=== PATIENT | female | born 1975 | race Caucasian/White ===

== ENCOUNTER 2024-09-27 11:22 | Outpatient (AMB) | payer MEDICAID, SELFPAY ==
--- NOTE | 2024-09-27 11:32 | A.OFFVIS_ITS ---
VS Expanded 09/27/24 11:41 10/10/24 08:45 Height 5 ft 4.5 in 5 ft 4 in Weight 137 lb 12.623 oz 138 lb BMI 23.3 23.7 Intake Visit Reasons: Hypercholesterolemia Nutrition Presentation Details: Pt presens for MNT for hypercholesterolemia Pt thinks she is lactose intolerant d/t bloating, therefore working on choosing lactose free options and avoids garlic and onion due to GI discomfort reports having eliminated dairy about a yr and half ago vitamin water (reports unsing green powder with vit/nut added, unsure of name therefore was asked to bring label or pic to next appointment) logan 4 9 cereal in water and 6 oz can soda large meal in the day (salad green leaf veg cardenas peppers, chicken breast dairy free tortellini (potato/almond) or barrilla protein pasta or makes own protein bars dried amy and shana seltzer waer yogurt cashew bake and coconut cut out alcohol about , 9 month ago, doing well (reports was having 1-2 servings per week ) physical activity: 1 x[facility] [employer] [facility] Height: 5 ft 4 in Weight: 138 lb Resting Metabolic Rate: 1234.33 Calculated Activity Level: Sedentary Calories Needed to Maintain Weight: 1481.20 Diagnosis Nutrition problem #1: altered nutrition labs As related to (etiology) #1: diagnosis (hypercholesterolemia ) As evidenced by (sign/symptom) #1: abnormal serum lipids (ldl 204 (07/29)) Assessment & Plan Assessment & Plan (1) Hypercholesterolemia: Code(s): E78.00 - Pure hypercholesterolemia, unspecified Category: Medical Plan: Wt: 63 Kg ( 10/28 ) Est kcal needs as per MSJ: 1500 (40% carb, 30% protein/fat) Est fluid needs as per 25-30 ml/d:1900 Est prot per day as per 1 g/kg bw: 60 Recommend fiber intake : 8-10 g per day and gradually increase to 25-28 g per day for women and 35-38 g for men or as tolerated Recommend sodium intake per day : less than 2300 mg Educated patient on: ( R = reviewed V = verbalizes understanding N/R = needs review N/A = not applicable * Food sources of carbohydrate, adequate serving sizes and its role in various health conditions: R * Differences between complex carbohydrates a simple carbohydrates, role of fiber in diet: R * Lean protein sources of foods: R * Differences between types of fats and role in diet (mono on saturated fat fatty acids, saturated fatty acids, trans fats): R * Food sources of sodium in salt and healthy modifications for heart health in kidney health: R V R/V * Vitamins and minerals: R V N/R * Healthy plate method concept: R * Physical activity: Benefits a precaution: R Patient Instructions: Include sources of omega 3 fatty acides Continue to gradually replace saturated fats with unsaturated fats Include fish at least twice a week (3-4 oz of salmon, tuna for example) baked or in sand with olive oil work on reducing fried foods, foods made with batter Continue to have water or fruit/herb infused water ,reducing on sugary beverages Coding Level of Care Code Nutr Indiv Intake (71404) Diagnoses Hypercholesterolemia E78.00 Time Spent (min) 30
[2024-09-27 11:41] VITALS: BMI 23.3
[2024-10-10 08:45] VITALS: BMI 23.7
== END 2024-09-27 12:17 | disposition home or self-care (01) ==
LOC: HO.ENCR 11:22
PROVIDERS: PCP Family Medicine; Visit Provider Dietitian, Registered
DX: E78.00 Pure hypercholesterolemia, unspecified (principal)

== ENCOUNTER → 2024-09-27 11:22 | Outpatient (BNVA) | payer MEDICAID, SELFPAY | PROVIDERS: PCP Family Medicine; Visit Provider Dietitian, Registered | DX: Z71.3 Dietary counseling and surveillance (principal); E78.00 Pure hypercholesterolemia, unspecified | CPT/HCPCS: 97802 ==

== ENCOUNTER 2024-12-27 11:25 | Outpatient (AMB) | payer MEDICAID, SELFPAY ==
[2024-12-27 11:30] VITALS: BMI 23.5
--- NOTE | 2024-12-27 11:30 | A.OFFVIS_ITS ---
VS Expanded 12/27/24 11:30 Height 5 ft 4 in Weight 136 lb 14.513 oz BMI 23.5 Intake Visit Reasons: hyperlipidemia Medication List - Last Reconciled 01/03/[address], LDN hydroxyzine HCl 10 mg PO BID PRN mirtazapine 7.5 mg PO BEDTIME multivitamin with minerals 1 cap PO DAILY zinc sulfate 50 mg PO DAILY Nutrition Presentation Details: Pt presents for MNT for hypercholesterlemia Pt reports working on increasing soluble fiber in the diet reading food labels, choosing high fiber and working on trying recipes with monounsaturated fats, working on reducing /eliminating empty calories/fast food meals. Reports lacking variety of foods d/t dislikes/food consistency/taste B: logan lentil cereal dry or with low fat milk L: pasta high protein with olive oil Dinner: salad green /carrots, nuts, seeds physical activity: participates in [employer] one workout per week workouts (wt training) and 1 /wk , 30-45 walk/aerobic exercises Assessment & Plan Assessment & Plan (1) Hypercholesterolemia: Code(s): E78.00 - Pure hypercholesterolemia, unspecified Category: Medical Plan: Wt: 63 Kg ( 10/28 ), 62 kg (12/29) Est kcal needs as per MSJ: 1500 (40% carb, 30% protein/fat) Est fluid needs as per 25-30 ml/d:1900 Est prot per day as per 1 g/kg bw: 60 Recommend fiber intake : 8-10 g per day and gradually increase to 25-28 g per day for women and 35-38 g for men or as tolerated Recommend sodium intake per day : less than 2300 mg Educated patient on: ( R = reviewed V = verbalizes understanding N/R = needs review N/A = not applicable * Food sources of carbohydrate, adequate serving sizes and its role in various health conditions: R * Differences between complex carbohydrates a simple carbohydrates, role of fiber in diet: R * Lean protein sources of foods: R * Differences between types of fats and role in diet (mono on saturated fat fatty acids, saturated fatty acids, trans fats): R * Food sources of sodium in salt and healthy modifications for heart health in kidney health: R V R/V * Vitamins and minerals: R * Healthy plate method concept: R * Physical activity: Benefits a precaution: R Patient Instructions: Incorporate fruits/veg in smoothies- see options continue working on reducing saturated fats (highly processed foods /fritters/ cheese /cheese sauces /pastries) Coding Level of Care Code Nutr Indiv Subseq (98492) Diagnoses Hypercholesterolemia E78.00 Time Spent (min) 30
--- OUTSIDE RECORDS SUMMARY | 2024-12-27 14:17 | XMS_ITS | Encounter Summary ---
Author Organization [facility] Address [address] [place] [address] Phone Care Team Providers Care Limerock Tower Loader Name Role Phone Tobin Helton MD Unavailable [phone] Christin Monroy MD Primary Care Provider + Encounter Details Date Type Department Care Team (Latest Contact Info) Description 04/30/2023 Transcribe Orders Virtual Department [address] [place] [address] Christin Monroy MD [address] [place] [address] [email or web address] Breast screening (Primary Dx) Social History Tobacco Use Types Packs/Day Years Used Date Smoking Tobacco: Never Smokeless Tobacco: Never Alcohol Use Standard Drinks/Week Comments Yes 0 (1 standard drink = 0.6 oz pur e alcohol) occasionally Education Answer Date Recorded Are you interested in more education? Not on rayo e 08/01/2022 Are you concerned about learning? Not on file 08/01/2022 No 08/01/2022 No 08/01/2022 Digital Access Answer Date Recorded No 09/01/2022 No 09/01/2022 Reliable internet access at home? Not on file 09/01/2022 Device with a working camera? Not on file Comments No Sex and Gender Information Value Date Recorded Sex Assigned at Not on file Legal Sex Female 9:30 PM EDT Gender Identity Not on file Sexual Orientation Not on file documented as of this encounter Plan of Treatment Upcoming Encounters Date Type Department Care Team (Late st Contact Info) Description 07/26/2024 Procedure Pass [address] [address] 02/17/2025 9:30 AM EST Appointment [address] [address] Christin Monroy MD [address] [place] [address] [email or web address] documented as of this encounter Results * BI MAMMOGRAM SCREENING WITH TOMOSYNTHESIS WITH CAD (BILATERAL) (07/07/2023 11:09 AM EDT) Anatomical Region Laterality Modality Breast Left, Breast Right, Breast Bilateral Bila teral Mammography 07/08/2023 12:3 8 PM EDT Impressions 07/08/2023 4:24 PM EDT No mammographic evidence of malignancy in either breast. Annual screening mammography is recommended. BI-RADS 2 BENIGN The patient will be notified of the results and recommendations. Narrative 07/08/2023 4:24 PM EDT BI MAMMOGRAM SCREENING WITH TOMOSYNTHESIS WITH CAD (BILATERAL) Additional patient information: Screening. COMPARISON: Comparison is made with relevant prior imaging. Breast composition: The breast tissue is extremely dense which lowers the sensitivity of mammography. FINDINGS: No abnormal masses, suspicious calcifications, or other significant findings are identified mammographically in either breast. Diffuse bilateral waxing and waning masses consistent with cysts. Diffuse bilateral punctate microcalcifications with benign characteristics. Procedure Note Philipp Gilman MD - 07/08/2023 BI MAMMOGRAM SCREENING WITH TOMOSYNTHESIS WITH CAD (BILATERAL) Additional patient information: Screening. COMPARISON: Comparison is made with relevant prior imaging. Breast composition: The breast tissue is extremely dense which lowers thesensitivity of mammography. FINDINGS: No abnormal masses, suspicious calcifications, or other significantfindings are identified mammographically in either breast. Diffusebilateral waxing and waning masses consistent with cysts. Diffusebilateral punctate microcalcifications with benign characteristics. IMPRESSION: No mammographic evidence of malignancy in either breast. Annual screening mammography is recommended. BI-RADS 2 BENIGN The patient will be notified of the results and recommendations. us Christin Monroy MD IMG MG EXAMS Final Re sult documented in this encounter Visit Diagnoses Diagnosis Breast screening- Primary Breast screening, unspecified Breast screening Breast screening, unspecified documented in this encounter Care Teams Limerock Tower Loader Relationship Specialty Start Date End Date Christin Monroy MD [address] [address] [email or web address] PCP - General Family Medicine 04/30/23 Tobin Helton MD [address] [address] [email or web address] Historical LMR Provider 01/22/17 documented as of this encounter Additional Source Comments The information contained in this document represents components of the legal health record. It is not the complete legal health record.[facility]
--- OUTSIDE RECORDS SUMMARY | 2024-12-27 14:17 | XMS_ITS | Encounter Summary ---
Author Organization [facility] Address [address] [place] [address] Phone Care Team Providers Care Radio Station Engineer Name Role Phone Tobin Helton MD Primary Care Provider Tobin Helton MD Unavailable [phone] Erum Dyer NP Unavailable [phone] Jeff Butler MD Unavailable [phone] Tobin Helton MD Unavailable [phone] Tobin Helton MD Unavailable [phone] Christin Monroy MD Primary Care Provider + Encounter Details Date Type Department Care Team (Latest Contact Info) Description 12/24/2018 Transcribe Orders Virtual Department [address] [place], [place] [phone] Tobin Helton MD [address] [place] [address] [email or web address] Neck pain (Primary Dx) Social History Tobacco Use Types Packs/Day Years Used Date Smoking Tobacco: Never Assessed Comments No Sex and Gender Information Value Date Recorded Sex Assigned at Not on file Legal Sex Female 9:30 PM EDT Gender Identity Not on file Sexual Orientation Not on file documented as of this encounter Plan of Treatment Upcoming Encounters Date Type Department Care Team (Late st Contact Info) Description 07/26/2024 Procedure Pass [place] [address] [address] 02/17/2025 9:30 AM EST Appointment [address] [address] Christin Monroy MD [address] [place] [address] [email or web address] documented as of this encounter Results * XR CERVICAL SPINE 4-5 VIEWS (12/27/2018 12:58 PM EDT) Anatomical Region Laterality Modality C-spine Radiographic Evon ging 12/27/2018 1:09 PM EDT Impressions 12/27/2018 1:12 PM EDT Minimal disc space narrowing at [id number]-maoienmgj unremarkable examination. This examination is insufficient to assess findings related to the mandible. On the images with the mandible is visualized no right-sided pathology is noted on this exam. S/S: <N/A> no indication applies (use free text below) bump on right side of jaw, neck pain POS - [id number] Narrative 12/27/2018 1:12 PM EDT COMPARISON: None FINDINGS: AP, lateral, both oblique, and odontoid views of the cervical spine are obtained. The odontoid appears intact. There may be some minor disc space narrowing evident at C5-6. Minimal bony spurring is noted. No compression fracture or subluxation is seen. On oblique views the neural foramen are patent. The lung apices are clear. Procedure Note Ayush Lees MD - 12/27/2018 COMPARISON: None FINDINGS: AP, lateral, both oblique, and odontoid views of the cervical spine areobtained. The odontoid appears intact. There may be some minor disc space narrowing evident at C5-6. Minimal bonyspurring is noted. No compression fracture or subluxation is seen. On oblique views the neural foramen are patent. The lung apices are clear. IMPRESSION: Minimal disc space narrowing at L0-2-autftuzla unremarkable examination. This examination is insufficient to assess findings related to themandible. On the images with the mandible is visualized no right-sidedpathology is noted on this exam. S/S: <N/A> no indication applies (use free text below) bump on right sideof jaw, neck pain POS - [id number] Tobin Helton MD IMG XR SPINE Final Result documented in this encounter Visit Diagnoses Diagnosis Neck pain- Primary Cervicalgia Neck pain Cervicalgia documented in this encounter Care Teams Radio Station Engineer Relationship Specialty Start Date End Date Tobin Helton MD [address] [address] [email or web address] PCP - General 01/20/17 04/29/23 Christin Monroy MD [address] [place] [address] [email or web address] PCP - General Family Medicine 04/30/23 Tobin Helton MD [address] [place] [address] [email or web address] Historical LMR Provider 01/22/17 Erum Dyer NP [address] [place] [address] Historical LMR Provider 01/22/17 2 Jeff Butler MD [address] [place] [address] [address] [place] [address] [email or web address] Historical LMR Provider 01/22/17 04/13/21 Tobin Helton MD [address] [place] [address] [email or web address] Insurance Assigned Provider 07/04/1708/23 Tobin Helton MD [address] [address] [email or web address] Insurance Assigned Provider 11/09/22 documented as of this encounter Additional Source Comments The information contained in this document represents components of the legal health record. It is not the complete legal health record.[facility]
--- OUTSIDE RECORDS SUMMARY | 2024-12-27 14:17 | XMS_ITS | Encounter Summary ---
Author Organization [facility] Address [address] [place] [address] Phone Care Team Providers Care Millinery Teacher Name Role Phone Tobin Helton MD Primary Care Provider Tobin Helton MD Unavailable [phone] Erum Dyer NP Unavailable [phone] Jeff Butler MD Unavailable [phone] Tobin Helton MD Unavailable [phone] Tobin Helton MD Unavailable [phone] Christin Monroy MD Primary Care Provider + Encounter Details Date Type Department Care Team (Latest Contact Info) Description 11/04/2018 Transcribe Orders [address] [phone] Tobin Helton MD [address] [place] [address] [email or web address] Fatigue, unspecified type (Primary Dx); Depression, unspecified depression type Social History Tobacco Use Types Packs/Day Years [...] st Contact Info) Description 07/26/2024 Procedure Pass [address] [address] 02/17/2025 9:30 AM EST Appointment [address] [address] Christin Monroy MD [address] [place] [address] [email or web address] documented as of this encounter Results * CBC and differential (11/04/2018 11:34 AM EDT) WBC 6.23 3.40 - 11.20 K/uL [facility] RBC 4.39 3.80 - 4.80 M/uL [facility] HGB 13.7 12.0 - 15.0 g/dL [facility] HCT 40.7 36.0 - 46.0 % [facility] PLT 239 130 - 400 K/uL [facility] MCV 92.7 79.0 - 98.0 fL [facility] MCH 31.2 27.0 - 34.8 pg [facility] MCHC 33.7 31.5 - 36.0 g/dL [facility] RDW 11.8 10.8 - 14.6 % [facility] MPV 10.6 9.4 - 12.4 [facility] NRBC 0.00 0.00 /100 WBCs [facility] ABSOLUTE NRBC 0.00 0.00 K/uL [facility] DIFF METHOD Auto [facility] NEUTS 50.8 45.30 - 77.70 % [facility] LYMPHS 37.6 12.30 - 39.70 % [facility] MONOS 8.0 4.10 - 12.80 % [facility] EOS 2.7 0 - 7.2 % [facility] BASOS 0.6 0 - 2.80 % [facility] Granulocytes, immature (%) 0.3 0.0 - 0.9 % [facility] ABSOLUTE NEUTS 3.16 1.40 - 7.70 K/uL [facility] ABSOLUTE LYMPHS 2.34 0.60 - 3.20 K/uL [facility] ABSOLUTE MONOS 0.50 0.11 - 0.59 K/uL [facility] ABSOLUTE EOS 0.17 0.01 - 0.50 K/uL [facility] ABSOLUTE BASOS 0.04 0.00 - 0.08 K/uL [facility] Granulocytes, immature 0.02 0.00 - 0.05 K/uL [facility] Blood 11/04/2018 11:3 4 AM EDT 11/04/2018 11:39 AM EDT us Tobin Helton MD LAB BLOOD ORDERABLES Final R esult Performing Organization Address City/[facility]/ZIP Co de Phone Number [address] [address] * TSH with reflex (11/04/2018 11:34 AM EDT) TSH 3.43 0.27 - 4.20 uIU/mL [facility] Blood 11/04/2018 11:3 4 AM EDT 11/04/2018 11:39 AM EDT us Tobin Helton MD LAB BLOOD ORDERABLES [facility] Performing Organization Address [facility] Co de Phone Number [address] [address] * (ABNORMAL) Lipid panel (11/04/2018 11:34 AM EDT) HDL 44 mg/dL [facility] Comment: Interpretation <40 mg/dL: Low HDL cholesterol (major risk factor for CHD) Greater than or equal to 60 mg/dL: High HDL cholesterol ( negative risk factor for CHD) HDL - cholesterol is affected by a number of factors, e.g. smoking, excerise, hormones, sex and age. CHOLESTEROL 206 0 - 240 mg/dL [facility] TRIGLYCERIDES 164(H) 30 - 160 mg/dL [facility] LDL 129 50 - 129 mg/dL [facility] Comment: LDL levels in terms of risk for coronary heart disease: <100 mg/dL: Optimal 100-129 mg/dL: Near or above optimal 130-159 mg/dL: Borderline high 160-189 mg/dL: High >190 mg/dL: Very High CARDIAC RISK RATIO 4.7(H) 3.3 - 4.4 C [facility] Blood 11/04/2018 11:3 4 AM EDT 11/04/2018 11:39 AM EDT us Tobin Helton MD LAB BLOOD ORDERABLES Final R esult [address] [address] * (ABNORMAL) Comprehensive metabolic panel (11/04/2018 11:34 AM EDT) SODIUM 141 133 - 146 mmol/L [facility] POTASSIUM 3.5 3.3 - 5.1 mmol/L [facility] CHLORIDE 102 96 - 108 mmol/L [facility] CO2 24 21 - 35 mmol/L [facility] BUN 18 6 - 19 mg/dL [facility] CREATININE 1.00 0.5 - 1.5 mg/dL [facility] GLUCOSE 69(L) 70 - 99 mg/dL [facility] ALBUMIN 4.3 3.9 - 4.8 g/dL [facility] TOTAL PROTEIN 7.4 6.5 - 8.0 g/dL [facility] CALCIUM 9.7 8.4 - 10.3 mg/dL [facility] ALKALINE PHOSPHATASE 67 39 - 117 U/L [facility] TOTAL BILIRUBIN 0.5 0.0 - 1.2 mg/dL [facility] AST 19 0 - 37 U/L [facility] ALT 16 0 - 40 U/L [facility] GLOBULIN 3.1 1 - 4.8 g/dL [facility] EGFR 68 >59 mL/min/1.7 3m2 [facility] Comment:If patient is black, multiply result by 1.159. Estimated glomerular filtration rate calculated using the CKD-EPI equation. ANION GAP 19 10 - 20 mmol/L [facility] Blood 11/04/2018 11:3 4 AM EDT 11/04/2018 11:39 AM EDT us Tobin Helton MD LAB BLOOD ORDERABLES Final R esult [address] [address] documented in this encounter Visit Diagnoses Diagnosis Fatigue, unspecified type- Primary Depression, unspecified depression type documented in this encounter Care Teams Millinery Teacher Relationship Specialty Start Date End Date Tobin Helton MD [address] [address] [email or web address] PCP - General 01/20/17 04/29/23 Christin Monroy MD [address] [address] [email or web address] PCP - General Family Medicine 04/30/23 Tobin Helton MD [address] [place] [address] [email or web address] Historical LMR Provider 01/22/17 Erum Dyer NP [address] [place] [address] Historical LMR Provider 01/22/17 2 Jeff Butler MD [address] [place] [address], [facility] [address] [place] [address] [email or web address] Historical LMR Provider 01/22/17 04/13/21 Tobin Helton MD [address] [address] [email or web address] Insurance Assigned Provider 07/04/1708/23 Tobin Helton MD [address] [address] [email or web address] Insurance Assigned Provider 11/09/22 documented as of this encounter Additional Source Comments The information contained in this document represents components of the legal health record. It is not the complete legal health record.[facility]
--- OUTSIDE RECORDS SUMMARY | 2024-12-27 14:17 | XMS_ITS | Encounter Summary ---
Author Organization [facility] Address [address] [place] [address] Phone Care Team Providers Care Wind Plant Manager Name Role Phone Tobin Helton MD Primary Care Provider [phone] Tobin Helton MD Unavailable [phone] Erum Dyer NP Unavailable [phone] Jeff Butler MD Unavailable [phone] Tobin Helton MD Unavailable [phone] Tobin Helton MD Unavailable [phone] Christin Monroy MD Primary Care Provider + Reason for Referral * Physical Therapy - Closed Specialty Diagnoses / Procedures Referred By Benoit de la torre Referred To Contact Physical Therapy Diagnoses Encounter for rehabilitation Tobin Helton MD Phone: tel: fax: [email or web address] [address] Phone: tel: Referral ID Status Reason Start Date Expiration Date Visits Re quested Visits Authorized [id number] Closed 06/18/2017 06/18/2018 12 12 Encounter Details Date Type Department Care Team (Latest Contact Info) Description 06/10/2017 Transcribe Orders [facility] [address] [place] [address] Tobin Helton MD [address] [address] [email or web address] Encounter for rehabilitation (Primary Dx) Social History Tobacco Use Types Packs/Day Years Used Date Smoking Tobacco: Never Assessed Comments Unknown Sex and Gender Information Value Date Recorded Sex Assigned at Not on file Legal Sex Female 9:30 PM EDT Gender Identity Not on file Sexual Orientation Not on file documented as of this encounter Plan of Treatment Upcoming Encounters Date Type Department Care Team (Late st Contact Info) Description 07/26/2024 Procedure Pass [address] [address] 02/17/2025 9:30 AM EST Appointment [address] [address] Christin Monryo MD [address] [place] [address] [email or web address] Scheduled Referrals Name Type Priority Associated Diagnoses Orde r Schedule Ambulatory referral to [facility] Physical Therapy Outpatient Referral Routine Encounter for rehabilitation Ordered: 06/10/2017 documented as of this encounter Visit Diagnoses Diagnosis Encounter for rehabilitation- Primary documented in this encounter Care Teams Wind Plant Manager Relationship Specialty Start Date End Date Tobin Helton MD [address] [address] [email or web address] PCP - General 01/20/17 04/29/23 Christin Monroy MD [address] [place] [address] [email or web address] PCP - General Family Medicine 04/30/23 Tobin Helton MD [address] [place] [address] [email or web address] Historical LMR Provider 01/22/17 Erum Dyer NP [address] [place] [address] Historical LMR Provider 01/22/17 2 Jeff Butler MD [address] [place] [address] [address] [place] [address] [email or web address] Historical LMR Provider 01/22/17 04/13/21 Tobin Helton MD [address] [address] [email or web address] Insurance Assigned Provider 07/04/1708/23 Tobin Helton MD [address] [address] [email or web address] Insurance Assigned Provider 11/09/22 documented as of this encounter Additional Source Comments The information contained in this document represents components of the legal health record. It is not the complete legal health record.[facility]
--- OUTSIDE RECORDS SUMMARY | 2024-12-27 14:18 | XMS_ITS | Encounter Summary ---
Author Organization [facility] Address [address] [place] [address] Phone Care Team Providers Care Mirror Polisher Name Role Phone Tobin Helton MD Primary Care Provider Tobin Helton MD Unavailable [phone] Erum Dyer CERTIFIED PEDORTHOTIST Unavailable [phone] Jeff Butler MD Unavailable Tobin Helton MD Unavailable [phone] Tobin Helton MD Unavailable [phone] Christin Monroy MD Primary Care Provider + Encounter Details Date Type Department Care Team (Late st Contact Info) Description 04/30/2017 Ancillary Orders [facility], X-Ray - [address] [place] [address] Tobin Helton MD [address] [place] [address] [email or web address] Left foot pain Social History Tobacco Use Types Packs/Day Years [...] st Contact Info) Description 07/26/2024 Procedure Pass [address] [address] 02/17/2025 9:30 AM EST Appointment [address] [address] Christin Monroy MD [address] [place] [address] [email or web address] documented as of this encounter Results * XR FOOT 3 OR MORE VIEWS (LEFT) (04/30/2017 12:31 PM EST) Anatomical Region Laterality Modality Foot Left Radiographic Evon ging 04/30/2017 12:3 5 PM EST Impressions 04/30/2017 12:36 PM EST No significant bony abnormality. POS - [id number] Narrative 04/30/2017 12:36 PM EST Frontal, lateral, and oblique views disclose no fracture, subluxation, or other significant abnormality involving the visualized regional skeletal structures. No periarticular erosions. Fifth toe is held in flexion slightly limiting evaluation of the interphalangeal joints. Second metatarsal head is unremarkable in appearance. Procedure Note Jose Alejandro Robbins MD - 04/30/2017 Frontal, lateral, and oblique views disclose no fracture, subluxation, orother significant abnormality involving the visualized regional skeletalstructures. No periarticular erosions. Fifth toe is held in flexionslightly limiting evaluation of the interphalangeal joints. Secondmetatarsal head is unremarkable in appearance. IMPRESSION: No significant bony abnormality. POS - [id number] Tobin Helton MD IMG XR LOWER EXTREMITY Final Result documented in this encounter Visit Diagnoses Diagnosis Left foot pain Pain in soft tissues of limb Left foot pain Pain in soft tissues of limb documented in this encounter Care Teams Mirror Polisher Relationship Specialty Start Date End Date Tobin Helton MD [address] [place] [address] [email or web address] PCP - General 01/20/17 04/29/23 Christin Monroy MD [address] [place] [address] [email or web address] PCP - General Family Medicine 04/30/23 Tobin Helton MD [address] [address] [email or web address] Historical LMR Provider 01/22/17 Erum Dyer NP [address] [place] [address] Historical LMR Provider 01/22/17 2 Jeff Butler MD [address] [place] [address] 102 [place] [address] [email or web address] Historical LMR Provider 01/22/17 04/13/21 Tobin Helton MD [address] [place] [address] [email or web address] Insurance Assigned Provider 07/04/1708/23 Tobin Helton MD [address] [address] [email or web address] Insurance Assigned Provider 11/09/22 documented as of this encounter Additional Source Comments The information contained in this document represents components of the legal health record. It is not the complete legal health record.[facility]
--- OUTSIDE RECORDS SUMMARY | 2024-12-27 14:19 | XMS_ITS | Encounter Summary ---
Author Organization [facility] Address [address] [place] [address] Phone Care Team Providers Care Developer Analyst Name Role Phone Tobin Helton MD Primary Care Provider [phone] Tobin Helton MD Unavailable [phone] Tobin Helton MD Unavailable [phone] Tobin Helton MD Unavailable [phone] Christin Monroy MD Primary Care Provider + Encounter Details Date Type Department Care Team (Latest Contact Info) Description 06/21/2021 Transcribe Orders Virtual Department [address] [place] [address] Tobin Helton MD [address] [place] [phone] [email or web address] Breast screening (Primary Dx) Social History Tobacco Use Types Packs/Day Years Used Date Smoking Tobacco: Never Smokeless Tobacco: Never Alcohol Use Standard Drinks/Week Comments Yes 0 (1 standard drink = 0.6 oz pur e alcohol) 5 per month Comments No Sex and Gender Information Value Date Recorded Sex Assigned at Not on file Legal Sex Female 9:30 PM EDT Gender Identity Not on file Sexual Orientation Not on file documented as of this encounter Plan of Treatment Upcoming Encounters Date Type Department Care Team (Late st Contact Info) Description 07/26/2024 Procedure Pass [facility], [facility] [address] [place] [address] 02/17/2025 9:30 AM EST Appointment [facility], Mammography- [facility] [address] [place] [address] Christin Monroy MD [address] [place] [address] [email or web address] documented as of this encounter Results * BI MAMMOGRAM SCREENING WITH TOMOSYNTHESIS WITH CAD (BILATERAL) (08/02/2021 11:54 AM EDT) Anatomical Region Laterality Modality Breast Left, Breast Right, Breast Bilateral Bila teral Mammography 08/02/2021 12:0 0 PM EDT Impressions 08/02/2021 12:03 PM EDT No findings suspicious for malignancy. In the absence of a worrisome palpable abnormality, annual screening mammography is recommended. BI-RADS CATEGORY: 2 - Benign finding. DENSITY: The breast tissue is extremely dense, which lowers the sensitivity of mammography. Narrative 08/02/2021 12:03 PM EDT COMPARISON: 06/23/2016 and 08/25/2017. Bilateral 3-D tomosynthesis with 2-D reconstructions in the CC and MLO projection. Computer-aided detection system also utilized. No new mass, asymmetry, architectural distortion or suspicious calcifications have become apparent on either side. The breasts are extremely dense with many ill-defined lobulated areas within the fibroglandular pattern all of which are stable or less conspicuous than previous. Scattered bilateral calcifications have also slightly increased in number but none have developed worrisome characteristics. Procedure Note Lawson Singh MD - 08/02/2021 COMPARISON: 06/23/2016 and 08/25/2017. Bilateral 3-D tomosynthesis with 2-D reconstructions in the CC and MLOprojection. Computer-aided detection system also utilized. No new mass, asymmetry, architectural distortion or suspiciouscalcifications have become apparent on either side. The breasts are extremely dense with many ill-defined lobulated areaswithin the fibroglandular pattern all of which are stable or lessconspicuous than previous. Scattered bilateral calcifications have also slightly increased in numberbut none have developed worrisome characteristics. IMPRESSION: No findings suspicious for malignancy. In the absence of a worrisomepalpable abnormality, annual screening mammography is recommended. BI-RADS CATEGORY: 2 - Benign finding. DENSITY: The breast tissue is extremely dense, which lowers thesensitivity of mammography. Tobin Helton MD IMG MG EXAMS Final Result documented in this encounter Visit Diagnoses Diagnosis Breast screening- Primary Breast screening, unspecified Breast screening Breast screening, unspecified documented in this encounter Care Teams Developer Analyst Relationship Specialty Start Date End Date Tobin Helton MD [address] [address] [email or web address] PCP - General 01/20/17 04/29/23 Christin Monroy MD [address] [address] [email or web address] PCP - General Family Medicine 04/30/23 Tobin Helton MD [address] [address] [email or web address] Historical LMR Provider 01/22/17 Tobin Helton MD [address] [address] [email or web address] Insurance Assigned Provider 07/04/1708/23 Tobin Helton MD [address] [address] [email or web address] Insurance Assigned Provider 11/09/22 documented as of this encounter Additional Source Comments The information contained in this document represents components of the legal health record. It is not the complete legal health record.[facility]
--- OUTSIDE RECORDS SUMMARY | 2024-12-27 14:19 | XMS_ITS | Encounter Summary ---
Author Organization [facility] Address [address] [place] [address] Phone Care Team Providers Care Stain Dipper Name Role Phone Tobin Helton MD Primary Care Provider Tobin Helton MD Unavailable Erum Dyer NP Unavailable [phone] Jeff Butler MD Unavailable [phone] Tobin Helton MD Unavailable [phone] Tobin Helton MD Unavailable Christin Monroy MD Primary Care Provider + Encounter Details Date Type Department Care Team (Late st Contact Info) Description 04/30/2017 Ancillary Orders [facility] Department [address] [place], [place] [phone] Tobin Helton MD [address] [place] [address] [email or web address] Injury of left foot, initial encounter Social History Tobacco Use Types Packs/Day Years [...] Contact Info) Description 07/26/2024 Procedure Pass [address] [address] 02/17/2025 9:30 AM EST Appointment [address] [address] Christin Monroy MD [address] [place] [address] [email or web address] documented as of this encounter Visit Diagnoses Diagnosis Injury of left foot, initial encounter documented in this encounter Care Teams Stain Dipper Relationship Specialty Start Date End Date Tobin Helton MD [address] [address] [email or web address] PCP - General 01/20/17 04/29/23 Christin Monroy MD [address] [place] [address] [email or web address] PCP - General Family Medicine 04/30/23 Tobin Helton MD [address] [address] [email or web address] Historical LMR Provider 01/22/17 Erum Dyer NP [address] [place] [address] Historical LMR Provider 01/22/17 2 Jeff Butler MD [address] [place] [address], [address] [address] [email or web address] Historical LMR Provider 01/22/17 04/13/21 Tobin Helton MD [address] [address] [email or web address] [email or web address] Corporationwell[facility] Insurance Assigned Provider 07/04/1708/23 Tobin Helton MD [address] [address] [email or web address] hospitalTideland Signal Corporationwell[facility] Insurance Assigned Provider 11/09/22 documented as of this encounter Additional Source Comments The information contained in this document represents components of the legal health record. It is not the complete legal health record.[facility]
--- OUTSIDE RECORDS SUMMARY | 2024-12-27 14:19 | XMS_ITS | Encounter Summary ---
Author Organization [facility] Address [address] [place] [address] Phone Care Team Providers Care Precision Optics Technician Name Role Phone Tobin Helton MD Unavailable [phone] Christin Monroy MD Primary Care Provider + Encounter Details Date Type Department Care Team (Late st Contact Info) Description 04/30/[address] [address] Social History Tobacco Use Types Packs/Day Years Used Date Smoking Tobacco: Never Smokeless Tobacco: Never Alcohol Use Standard Drinks/Week Comments Not Currently 0 (1 standard drink = 0.6 oz [...] (Late st Contact Info) Description 07/26/[address] [address] 02/17/2025 9:30 AM EST Appointment [facility], [facility]- [address] [address] Christin Monroy MD [address] [place] [address] [email or web address] documented as of this encounter Visit Diagnoses Not on filedocumented in this encounter Care Teams Precision Optics Technician Relationship Specialty Start Date End Date Christin Monroy MD [address] [address] [email or web address] PCP - General Family Medicine 04/30/23 Tobin Helton MD [address] [address] [email or web address] Historical LMR Provider 01/22/17 documented as of this encounter Additional Source Comments The information contained in this document represents components of the legal health record. It is not the complete legal health record.[facility]
--- OUTSIDE RECORDS SUMMARY | 2024-12-27 14:19 | XMS_ITS | Clinical Summary ---
Author Organization [facility] Address [address] [place] [address] Phone Care Team Providers Care Casting Finisher Name Role Phone Tobin Helton MD Unavailable [phone] Christin Monroy MD Primary Care Provider + Allergies Active Allergy Reactions Criticality Noted Date Comments Garlic GI Upset 10/24/2020 And onion Medications mirtazapine (REMERON) 7.5 MG tablet Take by mouth nightly at bedtime. 5/8 of a tablet Active therapeutic multivitamin tablet Take 1 tablet by mouth daily. Active glucosamine-chond roitin 500-400 mg Cap Take 1 capsule by mouth 3 (three) times a day. Active CALCIUM-MAGNESIUM -ZINC ORAL Take by mouth. Active cholecalciferol, vitamin D3, (VITAMIN D3 ORAL) Take by mouth. Active FLAXSEED OIL ORAL Take by mouth. Active venlafaxine (EFFEXOR-XR) 37.5 MG 24 hr capsule 5 Active hydrOXYzine HCL (ATARAX) 10 MG tablet 5 Active atorvastatin (LIPITOR) 10 MG tablet Take 1 tablet by mouth every morning. 5 Active Active Problems Problem Noted Date Diagnosed Date Perimenopause 10/26/2020 Assessment & Plan (11/07/2024 11:12 AM EDT): Answered questions re: changes associated with perimenopause. Encouraged Mile to RTO PRN for continued discussion sharron if she would like treatment for vasomotor symptoms etc. Assessment & Plan (12/09/2020 12:37 PM EDT): Normal pelvic ultrasound today. Reviewed mechanism of action for Lysteda - non-hormonal medication that acts on the blood clotting cascade to decrease bleeding. As Mile had an improvement in symptoms, plan to continue this approach to bleeding control. Call PRN for refills. Assessment & Plan (10/26/2020 1:33 PM EDT): Discussed HMB in conjunction with dysmenorrhea. Discussed difference between primary and secondary dysmenorrhea. Reviewed options for management of symptoms including higher dose NSAIDs, Lysteda, hormonal contraception, or surgery (endometrial ablation, hysterectomy). Reviewed pros/cons to different management approaches. Discussed work up in general: can start with pelvic ultrasound. Ok to obtain abdominal views only for patient comfort. Concurrently, Mile is interested in trial of Lysteda. Medication instructions reviewed and Rx sent to pharmacy. We will check in on menstrual bleeding at follow up visit. Resolved Problems Problem Noted Date Diagnosed Date Resolved Date Vulvar itching 10/26/2020 08/11/2022 Assessment & Plan (12/09/2020 12:51 PM EDT): Vulvar biopsy not indicated, do not suspect lichen sclerosus/planus. Can use OTC hydrocortisone ointment (suggest BID x7 days then as needed). Assessment & Plan (10/26/2020 1:34 PM EDT): Discussed options for exam given persistent itching. Mile feels like she can tolerate an external exam in the office thus will plan to do this following her ultrasound. We also reviewed that speculum exam/pap should be considered at some point although this can reasonably be deferred for the time being. Could consider doing this in the OR as well. Encounters Date Type Department Care Team Description 11/07/2024 10:20 AM EDT Office Visit [facility] [address] [place] [address] Hanny Alonzo MD Encounter for gynecological examination without abnormal finding (Primary Dx); Perimenopause from Last 3 Months Immunizations Immunization Administration Dates Next Due Influenza Quadrivalent Preservative Free IM 12/06 Influenza Recombinant Quadrivalent Preservative Free IM 02/11/2021 Family History Medical History Relation Comments Breast cancer Neg Hx Social History Tobacco Use Types Packs/Day Years Used Date Smoking Tobacco: Never Smokeless Tobacco: Never Tobacco Cessation:Counseling Given: Not Answered Alcohol Use Standard Drinks/Week Comments Not Currently [...] on file Sexual Orientation Not on file Last Filed Vital Signs Vital Sign Reading Time Taken Comments Blood Pressure 110/70 11/07/2024 10:22 AM EDT Pulse 64 03/22/2015 9:50 AM EST Temperature - - Respiratory Rate - - Oxygen Saturation - - Inhaled Oxygen Concentration - - Weight 62.2 kg (137 lb 3.2 oz) 11/07/2024 10:22 AM EDT Height 164.5 cm (5' 4.75 ) 08/11/2022 3:50 PM ED T Body Mass Index 23.01 08/11/2022 3:50 PM EDT Plan of Treatment Upcoming Encounters Date Type Department Care Team (Late st Contact Info) Description 07/26/2024 Procedure Pass [address] [address] 02/17/2025 9:30 AM EST Appointment [address] [address] Christin Monroy MD [address] [place] [address] [email or web address] Maintenance Due Date Last Done Comments DEPRESSION SCREENING 1985 HEPATITIS C SCREENING 11/26/1991 HIV ONE-TIME SCREENING (18-65 YEARS) 11/26/1991 PAP SMEAR 1994 COLOGUARD 2018 COLONOSCOPY 2018 FOBT 2018 SIGMOIDOSCOPY 2018 VIRTUAL COLONOSCOPY 2018 COLORECTAL CANCER SCREENING 05/01/2024 FIT TEST 05/01/2024 05/01/2023 INFLUENZA VACCINE (#1) 2024 , 01/01/2023, 02/11/2021, Additional history exists MAMMOGRAM 07/06/2025 07/07/2023, 07/06, 08/25/2017 LIPID PANEL 04/30/2028 04/30/2023, 04/07, 09/13/2020, Additional history exists Adult Td,Tdap Booster 04/30/2033 04/30/2023 ZOSTER VACCINES Completed 04/17/2024, 01/24/2024 COVID-19 VACCINE Completed 07/10/2024, , 01/05/2023, Additional history exists PNEUMOCOCCAL VACCINES (50+ years) Completed 07/10/2024 SMOKING STATUS SCREENING (Once After 26 Yrs) Completed 11/07/2024 HEPATITIS A VACCINES Aged Out No long er eligible based on patient's age to complete this topic HIB VACCINES Aged Out No longer eligi ble based on patient's age to complete this topic MENINGOCOCCAL VACCINES (ACWY) Aged Out No longer eligible based on patient's age to complete this topic MENINGOCOCCAL VACCINES (B) Aged Out N o longer eligible based on patient's age to complete this topic Medical Devices Not on file Procedures Procedure Name Priority Date/Time Associated Diagnosis Comments BI MAMMOGRAM SCREENING WITH TOMOSYNTHESIS WITH CAD (BILATERAL) Routine 07/07/2023 11:09 AM EDT Breast screening LIPID PANEL Routine 09/13/2020 11:50 AM EDT Weight loss from Last 3 Months or Most Recently Relevant to Health Maintenance Results * BI MAMMOGRAM SCREENING WITH TOMOSYNTHESIS [...] MD IMG MG EXAMS Final Re sult * (ABNORMAL) Lipid panel (09/13/2020 11:50 AM EDT) HDL 44 mg/dL [facility] Comment: Interpretation <40 mg/dL: Low HDL cholesterol (major risk factor for CHD) Greater than or equal to 60 mg/dL: High HDL cholesterol ( negative risk factor for CHD) HDL - cholesterol is affected by a number of factors, e.g. smoking, excerise, hormones, sex and age. CHOLESTEROL 177 0 - 240 mg/dL [facility] TRIGLYCERIDES 173(H) 30 - 160 mg/dL [facility] LDL 98 50 - 129 mg/dL [facility] Comment: LDL levels in terms of risk for coronary heart disease: <100 mg/dL: Optimal 100-129 mg/dL: Near or above optimal 130-159 mg/dL: Borderline high 160-189 mg/dL: High >190 mg/dL: Very High CARDIAC RISK RATIO 4.0 3.3 - 4.4 [facility] Blood 09/13/2020 11:5 0 AM EDT 09/13/2020 11:53 AM EDT us Tobin Helton MD LAB BLOOD ORDERABLES Final R esult [address] [address] from Last 3 Months or Most Recently Relevant to Health Maintenance Insurance [facility] [place] [address] [place] [address] [place] [address] [place] [address] [employer] [facility] Care Teams Casting Finisher Relationship Specialty Start Date End Date Christin Monroy MD [address] [place] [address] [email or web address] PCP - General Family Medicine 04/30/23 Tobin Helton MD [address] [address] [email or web address] Provider 01/22/17 Additional Source Comments The information contained in this document represents components of the legal health record. It is not the complete legal health record.[facility]
--- OUTSIDE RECORDS SUMMARY | 2024-12-27 14:19 | XMS_ITS | Encounter Summary ---
Author Organization [facility] Address [address] [place] [address] Phone Care Team Providers Care Pipe Fitter [employer] Name Role Phone Tobin Helton MD Primary Care Provider [phone] Tobin Helton MD Unavailable [phone] Tobin Helton MD Unavailable [phone] Tobin Helton MD Unavailable [phone] Christin Monroy MD Primary Care Provider + Encounter Details Date Type Department Care Team (Late st Contact Info) Description 06/21/2021 Procedure Pass [address] [address] Social History Tobacco Use Types Packs/Day Years [...] st Contact Info) Description 07/26/2024 Procedure Pass [address] [address] 02/17/2025 9:30 AM EST Appointment [address] [address] Christin Monroy MD [address] [place] [id number] [email or web address] documented as of this encounter Visit Diagnoses Not on filedocumented in this encounter Care Teams Pipe Fitter [employer] Relationship Specialty Start Date End Date Tobin Helton MD [address] [address] [email or web address] PCP - General 01/20/17 04/29/23 Christin Monroy MD [address] [address] [email or web address] PCP - General Family Medicine 04/30/23 Tobin Helton MD [address] [address] [email or web address] 01/22/17 Tobin Helton MD [address] [address] [email or web address] Assigned Provider 07/04/1708/23 Tobin Helton MD [address] [address] [email or web address] Assigned Provider 11/09/22 documented as of this encounter Additional Source Comments The information contained in this document represents components of the legal health record. It is not the complete legal health record.[facility]
== END 2024-12-27 12:02 | disposition home or self-care (01) ==
LOC: HO.ENCR 11:25
PROVIDERS: PCP Family Medicine; Visit Provider Dietitian, Registered
DX: E78.00 Pure hypercholesterolemia, unspecified (principal)

== ENCOUNTER → 2024-12-27 11:25 | Outpatient (BNVA) | payer MEDICAID, SELFPAY | PROVIDERS: PCP Family Medicine; Visit Provider Dietitian, Registered | DX: E78.00 Pure hypercholesterolemia, unspecified (principal) | CPT/HCPCS: 97803 ==